=== PATIENT | male | born 1930 | race African-American/Black ===

== ENCOUNTER 2017-11-27 10:59 | Observation (INO) | payer MEDICARE, BC ==
[2017-11-27] VITALS (11 sets, daily range): BP systolic 91–138; BP diastolic 55–79
--- OUTSIDE RECORDS SUMMARY | 2017-11-27 12:16 | XMS REPORT | CCD ---
Author Author LUCIO MENDOZA Organization Unknown Address [address] [facility] [address] [place], [place] [id number] Care Team Providers Care Plastic Welder Name Role Phone SEAN BRENTCHRISTO Attphys MERCEDES DE LA FUENTE, SHONDA De Leon Vital Signs Unknown. Allergies Allergy Code Allergy Type Reaction Status No Known Allergies 0 No known allergies Active Procedures Unknown. History of Immunizations Unknown. Problems Unknown. Results Unknown. Medications Unknown. Medications Administered Unknown. Encounters Unknown. Social History Smoking Status Code Start Date End Date Never smoker [id number] Patient Decision Aids Unknown. Discharge Instructions You were admitted to [facility] on 10/05/2013. You were discharged from [facility] on 10/05/2013. Should you have any questions prior to discharge, please contact a member of your healthcare team. If you have left the hospital and have any questions, please contact your primary care physician. Chief Complaint and Reason For Visit Chief Complaint Date of Onset INSECT BITE Function Status Unknown. Referral/Transition of Care Unknown.
--- OUTSIDE RECORDS SUMMARY | 2017-11-27 12:16 | XMS REPORT | Continuity of Care Document ---
Author Author [facility] Address Unknown Phone Unavailable Allergies There is no data. Medications There is no data. Problems There is no data. Procedures There is no data. Results There is no data. Encounters ACCT No. Visit Date/Time Discharge Status Pt. Type Provider Facility Loc./Unit Complaint [id number] 10/08/2013 10:48:35 10/08/2013 23:59:59 CLS Outpatient Claudio Anguiano
--- NOTE | 2017-11-27 12:31 | Consultation-Cardiology ---
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 Apparently he woke up this morning complaining of generalized fatigue and loss of energy went to live at [facility] emergency room where he was noted to have sinus bradycardia with first-degree AV block and had few episodes of atrial tachycardia, PVCs and bradycardiac episodes. He denied any syncope, no chest pain or shortness of breath. No palpitation. No known previous cardiac history Home Medications & Allergies Allergies: Coded Allergies: No Known Drug Allergies (Unverified , 11/27/17) Home Medication List Reviewed: Yes [id number] Hx Patient Social History Marital Status: Employed/Student: retired Past Medical History Discussed below Family Medical History Family Medical Hx Noncontributory to his current condition Constitutional: see HPI, malaise, weakness EENTM: see HPI, no symptoms reported Respiratory: see HPI; No cough, No dyspnea on exertion, No hemoptysis, No orthopnea, No phlegm, No short of breath, No stridor, No wheezing, No other Cardiovascular: see HPI; No chest pain, No edema, No Hx of Intervention, No palpitations, No syncope, No vascular heart diseas, No other Gastrointestinal: see HPI Genitourinary: no symptoms reported, see HPI Musculoskeletal: no symptoms reported, see HPI Skin: no symptoms reported, see HPI Psychiatric/Neurological: No Symptoms Reported, See HPI Reviewed Test Results Reviewed Test Results Lab Labs from [facility] were normal, mildly elevated BNP Physical Exam Vital Signs Capillary Refill : Height, Weight, BMI Height: '" Weight: lbs. oz. kg; BMI Method: General Appearance: No Apparent Distress, WD/WN Eyes: Bilateral Eye Normal Inspection, Bilateral Eye PERRL, Bilateral Eye EOMI HEENT: PERRL/EOMI, TMs Normal, Normal ENT Inspection, Pharynx Normal Neck: Full Range of Motion, Normal Inspection, Non Tender, Supple, Carotid Bruit Respiratory: Chest Non Tender, Lungs Clear, Normal Breath Sounds, No Accessory Muscle Use, No Respiratory Distress Cardiovascular: No Edema, No Gallop, No JVD, No Murmur, Normal Peripheral Pulses, Bradycardia, Systolic Murmur Gastrointestinal: Normal Bowel Sounds, No Organomegaly, No Pulsatile Mass, Non Tender, Soft Back: Normal Inspection, No CVA Tenderness, No Vertebral Tenderness Extremity: Normal Capillary Refill, Normal Inspection, Normal Range of Motion, Non Tender, No Calf Tenderness, No Pedal Edema Neurologic/Psychiatric: Alert, No Motor/Sensory Deficits, Normal Mood/Affect, Other (Disoriented, dementia) Skin: Normal Color, Warm/Dry Lymphatic: No Adenopathy A/P-Cardiology Admission Diagnosis Generalized fatigue Sinus bradycardia Hypertension Dementia Assessment/Plan Generalized fatigue and loss of energy secondary to bradycardia. Bradycardia, has sinus bradycardia with first-degree AV block, multiple episodes of bradycardia, short runs of paroxysmal atrial tachycardia and PVCs. No syncope, has been complaint of fatigue, I will monitor him on telemetry at this time, evaluate 2-D echocardiogram, electrolytes were normal, continue to monitor electrolytes and troponin level. Hypertension, continue to monitor blood pressure, started on IV fluid Dementia, patient is disoriented, confused. 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
[2017-11-27] MEDS ORDERED: CINN500C2 PO (12:42)
[2017-11-27] MEDS ORDERED: VIT1CAPS9 PO (12:42)
[2017-11-27] MEDS ORDERED: PYRI100T2 PO (12:42)
[2017-11-27] MEDS ORDERED: ECHI125T PO (12:42)
[2017-11-27] MEDS ORDERED: MULT-1029 PO (12:42)
[2017-11-27] MEDS ORDERED: COD1CAPS6 PO (12:42)
[2017-11-27] MEDS ORDERED: SAW450CA7 PO (12:42)
[2017-11-27] MEDS ORDERED: MAGN400C3 PO (12:42)
[2017-11-27] MEDS ORDERED: ASPI325T32 PO (12:42)
[2017-11-27] MEDS ORDERED: ASCO10006 PO (12:42)
[2017-11-27] MEDS ORDERED: CALC1TAB29 PO (12:42)
[2017-11-27] MEDS ORDERED: IBUP-30 PO (12:42)
[2017-11-27] MEDS ORDERED: IBUP-1780 PO (12:46)
[2017-11-27] MEDS: NS IV 1000 ML 1,000 ML IV SCH ×2 (13:20→22:45)
--- NOTE | 2017-11-27 14:43 | History & Physicial ---
HPI History of Present Illness: HPI/Chief Complaint The patient is an 87-year-old black male from [place]. He was referred here for bradycardia. His states that after he got up this morning he complained of being lightheaded and dizzy and weak. This seemed to pass and they left the house to run an errand. The sensation came again and they took him to the emergency room at [facility]. He was found there to be bradycardic and was sent here to Dr. Angeles for possible pacemaker placement. After arrival he was found to have a satisfactory blood pressure and a rate greater than 50. His answers most of his questions. It is then revealed that he has relatively demented but very pleasant. He is taking no medications which would be bradycardic. Source: patient, family Exam Limitations: no limitations Date Seen 11/27/17 Time Seen by Provider: 14:38 Attending Physician Jorden Angeles MD PCP Claudio Anguiano MD Referring Physician Date of Admission Nov 27, 2017 at 12:07 Home Medications & Allergies Home Medications Reviewed patient Home Medication Reconciliation performed by pharmacy medication reconciliations breeding technician and/or nursing. Patients Allergies have been reviewed. Allergies Allergies Coded Allergies No Known Drug Allergies (Unverified11/27/17) Past Ubvagpi-Jtwonj-Jgqrtb Hx Patient Social History Marrital Status: Employed/Student: retired Alcohol Use: Denies Use Recreational Drug Use: No Smoking Status: Never a Smoker Physical Abuse Screen: No Sexual Abuse: No Recent Foreign Travel: No Contact w/other who traveled: No Recent Hopitalizations: No Recent Infectious Disease Expo: No Seasonal Allergies Seasonal Allergies: No Surgeries Yes (ACHILLES TENDON) Respiratory Yes Cardiovascular No Neurological Yes Genitourinary No Gastrointestinal No Musculoskeletal No Endocrine History of Endocrine Disorders: No HEENT History of HEENT Disorders: No Cancer No Psychosocial History of Psychiatric Problem: No Integumentary History of Skin or Integumenta: No Blood Transfusions History of Blood Disorders: No Family Medical History Family Hx: Alzheimer's disease G8 BROTHER Review of Systems Constitutional: see HPI EENTM: no symptoms reported Respiratory: no symptoms reported Cardiovascular: no symptoms reported Gastrointestinal: no symptoms reported Genitourinary: no symptoms reported Musculoskeletal: no symptoms reported Skin: no symptoms reported Psychiatric/Neurological: No Symptoms Reported Physical Exam Physical Exam Vital Signs Vital Signs - First Documented 11/27/17 12:15 Temp 96.8 Pulse 61 Resp 12 B/P (MAP) 138/79 (98) Pulse Ox 100 O2 Delivery Room Air Capillary Refill : Height, Weight, BMI Height: '" Weight: lbs. oz. kg; BMI Method: General Appearance: No Apparent Distress, WD/WN Eyes: Bilateral Eye Normal Inspection HEENT: Normal ENT Inspection Neck: Normal Inspection Respiratory: Chest Non Tender, Lungs Clear, Normal Breath Sounds, No Accessory Muscle Use, No Respiratory Distress Cardiovascular: Bradycardia Gastrointestinal: Normal Bowel Sounds, No Organomegaly, No Pulsatile Mass, Non Tender, Soft Back: Normal Inspection, No CVA Tenderness, No Vertebral Tenderness Extremity: Normal Capillary Refill, Normal Inspection, Normal Range of Motion, Non Tender, No Calf Tenderness, No Pedal Edema Neurologic/Psychiatric: Alert, Oriented x3, No Motor/Sensory Deficits, Normal Mood/Affect Skin: Normal Color, Warm/Dry Lymphatic: No Adenopathy Assessment/Plan Admission Diagnosis Bradycardia. 2.near syncopal episodes. 3. Admission Status: Observation Clinical Quality Measures DVT/VTE Risk/Contraindication: Risk Factor Score Per Nursin RFS Level Per Nursing on Admit: 2=Moderate EB DOLAN MD Nov 27, 2017 14:43
[2017-11-27] MEDS ORDERED: ASPIRIN E.C. 81 MG (ECOTRIN) TAB PO ONE (16:45)
[2017-11-27] MEDS ORDERED: FAMOTIDINE 20 MG (PEPCID) TABLET PO PRN (16:45)
[2017-11-28] VITALS (11 sets, daily range): BP systolic 104–155; BP diastolic 45–65
[2017-11-28 03:43] LABS: HEMOGLOBIN 12.6 G/DL (13.3-17.7); MEAN PLATELET VOLUME 11.3 FL (7.4-10.4); RED BLOOD COUNT 4.47 10^6/uL (4.35-5.85); RED CELL DISTRIBUTION WIDTH 15.3 % (10.0-14.5)
[2017-11-28 04:02] LABS: INR 1.2 (0.8-1.4); PROTHROMBIN TIME PATIENT 14.9 SEC (12.2-14.7)
[2017-11-28 04:09] LABS: ALANINE AMINOTRANSFERASE 10 U/L (0-55); ALBUMIN 3.5 GM/DL (3.2-4.5); ALKALINE PHOSPHATASE 74 U/L (40-136); BILIRUBIN,TOTAL 0.7 MG/DL (0.1-1.0); BUN/CREATININE RATIO 14; CALCIUM 8.8 MG/DL (8.5-10.1); CARBON DIOXIDE 21 MMOL/L (21-32); CHLORIDE 110 MMOL/L (98-107); CHOLESTEROL 274 MG/DL (< 200); CREATININE SERUM 0.97 MG/DL (0.60-1.30); GFR ESTIMATED > 60; GLUCOSE 85 MG/DL (70-105); HDL CHOLESTEROL 62 MG/DL (40-60); MAGNESIUM 2.3 MG/DL (1.8-2.4); POTASSIUM 4.2 MMOL/L (3.6-5.0); SODIUM 140 MMOL/L (135-145); TOTAL PROTEIN 6.5 GM/DL (6.4-8.2); TRIGLYCERIDES 90 MG/DL (<150); VLDL CHOLESTEROL 18 MG/DL (5-40)
[2017-11-28] MEDS ORDERED: POTASSIUM CL 10MEQ/50ML IVPB 50 ML IV SCH (06:00)
[2017-11-28] MEDS ORDERED: KCL 20 MEQ TAB (K-DUR) PO SCH (06:00)
[2017-11-28] MEDS ORDERED: MAGNESIUM 1 GM/100 ML IVPB 100 ML IV SCH (06:00)
[2017-11-28] MEDS ORDERED: ASPI-983 PO (07:53)
[2017-11-28] MEDS: NS IV 1000 ML 1,000 ML IV SCH (08:08)
--- NOTE | 2017-11-28 08:12 | Cardiology Progress Note ---
Subjective Date Seen by Provider: Nov 28, 2017 Time Seen by Provider: 08:00 Subjective/Events-last exam Patient is laying down in bed, no new complaint. No chest pain. Had few episodes of bradycardia down to the mid 40s, was asymptomatic. Review of Systems General: No Chills, No Night Sweats, No Fatigue, No Malaise, No Appetite, No Other HEENT: No Head Aches, No Visual Changes, No Eye Pain, No Ear Pain, No Dysphasia , No Sinus Congestion, No Post Nasal Drip, No Sore Throat, No Other Pulmonary: No Dyspnea, No Cough, No Pleuritic Chest Pain, No Other Cardiovascular: No: Chest Pain, Palpitations, Orthopnea, Paroxysmal Noc. Dyspnea, Edema, Lt Headedness, Other Objective-Cardiology Exam Last Set of Vital Signs Vital Signs 11/28/17 08:00 Temp 97.3 Pulse 63 Resp 14 B/P (MAP) 145/64 (91) Pulse Ox 99 O2 Delivery Room Air Capillary Refill : I&O Intake and Output 11/28/17 00:00 Intake Total 240 ml Output Total 0 ml Balance 240 ml Intake Oral 240 ml Output Urine Total 0 ml # Voids 4 Daily Weight Change No General: Alert, Cooperative HEENT: Atraumatic, PERRLA Neck: Supple, No JVD, No Thyromegaly Lungs: Clear to Auscultation, Normal Air Movement Heart: Normal S1, Normal S2, No Murmurs, Other (Bradycardia) Abdomen: Normal Bowel Sounds, Soft, No Tenderness, No Hepatosplenomegaly, No Masses Extremities: No Clubbing, No Cyanosis, No Edema, Normal Pulses, No Tenderness/ Swelling Skin: No Rashes, No Breakdown, No Significant Lesion Neuro: Normal Gait, Normal Speech, Strength at 5/5 X4 Ext, Normal Tone, Sensation Intact Psych/Mental Status: Mental Status NL, Mood NL Results Lab Laboratory Tests 11/28/17 03:25 A/P-Cardiology Admission Diagnosis Generalized fatigue Sinus bradycardia Hypertension Dementia Assessment/Plan Generalized fatigue and loss of energy secondary to bradycardia, better today. No new complaint. Bradycardia, has sinus bradycardia with first-degree AV block, multiple episodes of bradycardia, short runs of paroxysmal atrial tachycardia and PVCs. No syncope, has been complaint of fatigue, due to his age and comorbid condition with dementia. His exercise ability is very limited. I will continue to monitor him as an outpatient. Planning to do 48 hour Holter monitor. Okay for discharge and follow-up as an outpatient Hypertension, continue to monitor blood pressure, started on IV fluid Dementia, patient is disoriented, confused. Probably vascular dementia Clinical Quality Measures DVT/VTE Risk/Contraindication: Risk Factor Score Per Nursin RFS Level Per Nursing on Admit: 2=Moderate JOSE DE JESUS HICKS MD Nov 28, 2017 8:12 am
[2017-11-28] MEDS ORDERED: ASPIRIN E.C. 81 MG (ECOTRIN) TAB PO SCH (09:00)
--- NOTE | 2017-11-29 15:59 | Physician Query-Final Dx ---
Final Diagnosis Give Final Diagnosis Please give Final Diagnosis TIAN HINKLE Nov 29, 2017 15:59
--- OUTSIDE RECORDS SUMMARY | 2017-11-30 18:28 | XMS REPORT | CCD ---
Author Author ERLIN VO Unknown Address [address] [place] [address] Care Team Providers Care Loose Hand Packer Name Role Phone NISA PHYS, BASHIR ER Attphys NISA PHYS, BASHIR ER Prisurg Allergies Allergy Code Allergy Type Reaction Status No Known Allergies 0 Drug allergy Active Active Medications Unknown or Not Available. Problems Unknown or Not Available. Procedures Procedure Code Procedure Type Date CT MAXILLOFACIAL W/O CONTRAST 929815121 SNOMED CT 2016 CT HEAD W/O CONTRAST 727394436 SNOMED CT 02/13/2017 Results Unknown or Not Available. Encounters Encounter Diagnosis Diagnosis Code Start Date Laceration without foreign body of nose, initial encounter [id number] 02/13/2017 Function Status Unknown or Not Available. History of Immunizations Unknown or Not Available. Plan of Treatment Unknown or Not Available. Social History Smoking Status Code Start Date End Date Never smoker [id number] Vital Signs Unknown or Not Available. Function Status Unknown or Not Available. Goals Unknown or Not Available. ASSESSMENTS Unknown or Not Available. Health Concerns Section Unknown or Not Available.
--- OUTSIDE RECORDS SUMMARY | 2017-11-30 18:28 | XMS REPORT | Continuity of Care Document ---
Author Author [facility] Address Unknown Phone Unavailable Allergies There is no data. Medications There is no data. Problems There is no data. Procedures There is no data. Results There is no data. Encounters ACCT No. Visit Date/Time Discharge Status Pt. Type Provider Facility Loc./Unit Complaint [id number] 10/08/2013 10:48:35 10/08/2013 23:59:59 CLS Outpatient Claudio Anguiano
== END 2017-11-28 07:54 | disposition home or self-care (01) ==
LOC: ICU 12:07 → UNDOADMIN 12:07 → ICU 12:16 → EDSTATUS 12:55 → UNDODISIN 11-28 10:25
PROVIDERS: ADMIT Internal Medicine Cardiovascular Disease; ATTEND Internal Medicine Cardiovascular Disease
DX: R00.1 Bradycardia, unspecified (principal); R55 Syncope and collapse; G30.9 Alzheimer's disease, unspecified; F01.50 Vascular dementia, unspecified severity, without behavioral disturbance, psychotic disturbance, mood disturbance, and anxiety; I10 Essential (primary) hypertension; I44.0 Atrioventricular block, first degree; I49.3 Ventricular premature depolarization; I47.1 Supraventricular tachycardia; R53.83 Other fatigue
CPT/HCPCS: 36415; 80053; 80061; 83735; 84443; 84484; 85027; 85610; 85730; 93005; 93306; 99211; G0378

== ENCOUNTER 2017-11-28 10:38 | Outpatient (RCR) | payer MEDICARE, BC ==
[~2017-11-28 10:38] MED LIST: ASCO10006 PO; ASPI-983 PO; ASPI325T32 PO; CALC1TAB29 PO; CINN500C2 PO; COD1CAPS6 PO; ECHI125T PO; IBUP-1780 PO; IBUP-30 PO; MAGN400C3 PO; MULT-1029 PO; PYRI100T2 PO; SAW450CA7 PO; VIT1CAPS9 PO
== END 2017-12-14 | disposition home or self-care (01) ==
LOC: CARD 10:38
PROVIDERS: ATTEND Physician Assistant
DX: R00.1 Bradycardia, unspecified (principal)
CPT/HCPCS: 93225; 93226